=== PATIENT | female | born 1940 | race Caucasian/White ===

== ENCOUNTER 2018-04-25 07:58 | Day surgery (SDC) | payer MEDICARE, OTHER ==
[~2018-04-25 07:58] MED LIST: Sodium Chloride 0.9% 1,000 ML IV SCH
[2018-04-25] MEDS ORDERED: Propofol 1,000 MG/100 ML SDV ONE (10:25)
[2018-04-25] MEDS ORDERED: Lidocaine 2% Viscous Solution 15 ML Cup ONE (10:25)
--- NOTE | 2018-04-25 17:08 | OR ---
DATE OF OPERATION: 04/25/2018 ANESTHESIA: MAC. PREOPERATIVE DIAGNOSIS: Possible gastrointestinal bleed. POSTOPERATIVE DIAGNOSIS: Normal EGD. ESTIMATED BLOOD LOSS: None. COMPLICATIONS: None. INDICATIONS FOR THE PROCEDURE: The patient is a 77-year-old female who is here today for an upper scope. Apparently, she has a history of gastric ulcers approximately 4 to 5 years ago, had a significant GI bleeding and last had this scope at that time. Over the past 1 to 2 years, the patient has had some dark black output, potentially through stools but also potentially per vagina. She has had hysterectomy previously. The patient is here today for upper scope. DESCRIPTION OF PROCEDURE: Informed consent was obtained for the patient. The patient was taken to the operating room and placed on the table in the left lateral decubitus position. Monitored anesthesia care was administered. Esophagogastroscope was the advanced through the mouth and did reach the second portion of the duodenum. Duodenum was normal. No signs of ulcers or duodenitis. The stomach was normal. No signs of ulcers or gastritis. Retroflexion performed was also normal. The scope was withdrawn into the esophagus. No signs of esophagitis. No strictures. No varices. The gastroscope was then slowly withdrawn. The remainder of the esophagus was normal as well. The scope was then removed. FINDINGS: Normal EGD. RECOMMENDATIONS: If there is concern for further GI bleeding, would recommend a capsule endoscopy in addition to colonoscopy. If this appears to be more potential bleeding from the vagina or vaginal cuff, I would recommend further followup with TECHNICAL SUPPORT TECHNICIAN. HALEIGH /[id number]
== END 2018-04-25 12:30 | disposition home or self-care (01) ==
LOC: LB.SDS 07:58
PROVIDERS: ATTEND Surgery
DX: K92.2 Gastrointestinal hemorrhage, unspecified (principal)
CPT/HCPCS: 82962; A9270-GY; J2704; J7030

== ENCOUNTER 2019-09-27 11:33 | Emergency (ER) | payer MEDICARE, OTHER ==
[2019-09-27] MEDS ORDERED: Ketorolac 30 MG/ML SDV ONE (13:37)
--- NOTE | 2019-09-27 17:43 | ER ---
REASON FOR EMERGENCY ROOM VISIT: Lower abdominal pain. HISTORY: This 78-year-old woman comes to the ER with a 1-2 week history of right lower quadrant abdominal pain. It started perhaps a week or 2 ago and was in the right lower quadrant. It tended to wax and wane every evening, usually lasting no more than 15 or 20 minutes at a time. This persisted and then increased in intensity over the past couple of days. In addition to that, she began to have some pain and burning over the anterolateral aspect of her right thigh. This too worsened last night. The pain did tend to radiate around to the right flank area. It was not associated with any urinary symptoms, hematuria, diarrhea, nausea, vomiting, fever, or anorexia. PAST MEDICAL HISTORY: Significant for; 1. Coronary artery disease with history of AK and coronary artery stent in 2012. 2. Type 2 diabetes. 3. Kidney disease. 4. Obesity. 5. Retinopathy. 6. Cataracts. MEDICATIONS: These were reviewed, please see EMR. They include atorvastatin, nitroglycerin, furosemide, aspirin, and acetaminophen. ALLERGIES: NONE TO MEDICATIONS. REVIEW OF SYSTEMS: Pertinent positives and negatives as listed in the HPI. PHYSICAL EXAMINATION: GENERAL: Reveals a pleasant, obese elderly woman, in no acute distress. VITAL SIGNS: She is afebrile. Pulse is 68, blood pressure 156/70, respiratory rate 20, O2 sats 95% on room air. HEENT: Head is normocephalic. No scleral icterus is noted. Oropharynx is normal. NECK: Supple. No adenopathy is noted. CHEST: Clear to auscultation. CARDIAC: Regular rate without murmur. ABDOMEN: Obese. Bowel sounds are present. Nondistended, soft, nontender. No palpable masses. No hepatosplenomegaly. No rebound or guarding was noted. RECTAL: Examination was not performed. EXTREMITIES: She has bilateral ankle edema that is symmetrical. She has palpable foot pulses. SKIN: No rashes. NEUROLOGIC: Cranial nerves 2-12 intact. She moves all 4 extremities equally well and to command. LABORATORY DATA: Her CBC is normal. Her CMP shows normal electrolytes. Her creatinine is elevated at 1.42 with a low GFR of 36. Her glucose is 130. Her total bilirubin is borderline elevated at 1.2 with an AST of 56 and alkaline phosphatase of 155. Her urine was unremarkable with no pyuria or hematuria. A CT scan of her abdomen was done looking for ureterolithiasis or nephrolithiasis and this was negative except for the finding of some biliary ductal dilatation, which had been present on previous studies. No other intraabdominal pathology was noted. The finding of mild biliary ductal dilatation was noted on the previous study as well. IMPRESSION: Right lower quadrant pain, uncertain etiology I doubt intraabdominal cause. PLAN: I explained to her that the burning and numbness and pain in her right upper lateral thigh might be due to lateral femoral cutaneous nerve impingement and that I could not offer an explanation for abdominal discomfort. I felt that she did receive 1 dose of Toradol [address] scan IM and had considerable relief of her discomfort. At this point, I felt that the better part of valor is to simply send her back home and have her keep an eye on things and take it easy over the rest of the weekend. If her pain persist into next week or worsen, she should probably be evaluated again. Additionally, because of the above- mentioned lab abnormalities, I encouraged her to call to the clinic and arrange for another CMP to recheck the status of her creatinine, kidney function and liver enzymes. She understands and agrees with this plan. All questions were answered. RADHA /[id number]
--- NOTE | 2019-09-28 11:26 | CT ---
DATE OF SERVICE: 09/27/19 CLINICAL DATA: Abdominal Pain UNENHANCED ABDOMEN AND PELVIC CT: Multislice acquisition through the abdomen and pelvis without IV or oral contrast was performed. Comparison is made to a prior exam dated 11/13/14. There are minimal atelectatic changes in both lung bases. The heart size is normal. The liver is normal size. It does have slightly lobulated contours suggesting the possibility of cirrhosis. No focal hepatic lesions. The patient is status post cholecystectomy. There is intrahepatic biliary duct dilatation. The common bile duct is also significantly dilated measuring 15 mm in diameter. This may be related to the prior cholecystectomy. No evidence of a duct calculi. The spleen appears normal. The pancreas appears normal. The right and left adrenals appear normal. There is mild atrophy of both kidneys. There is renal cortical scarring bilaterally. No nephrocalcinosis or nephrolithiasis. No hydronephrosis or hydroureter. The appendix is not dilated. No evidence of appendicitis. There is mild diverticulosis of the descending and sigmoid colon. No evidence of diverticulitis. The patient is status post hysterectomy. There is a small amount of fluid within the bladder. It appears normal. No free air. No free fluid. No dilated loops of bowel. No adenopathy. No aortic aneurysm. There is a small fat containing umbilical hernia. There is degenerative disc disease throughout the lower thoracic and lumbar spine. No other significant findings. IMPRESSION: Multiple findings as discussed above. [id number] [facility]
== END 2019-09-27 14:24 | disposition home or self-care (01) ==
LOC: LB.ED 11:33
DX: R10.31 Right lower quadrant pain (principal); I25.10 Atherosclerotic heart disease of native coronary artery without angina pectoris; I25.2 Old myocardial infarction; E66.9 Obesity, unspecified; E11.319 Type 2 diabetes mellitus with unspecified diabetic retinopathy without macular edema; Z79.82 Long term (current) use of aspirin; Z79.899 Other long term (current) drug therapy; Z68.43 Body mass index [BMI] 50.0-59.9, adult; Z95.5 Presence of coronary angioplasty implant and graft
CPT/HCPCS: 36415; 74176; 80053; 81001; 85025; 96372; 99283; 99284-25; J1885

== ENCOUNTER 2019-10-02 10:09 | Emergency (ER) | payer MEDICARE, OTHER | END 2019-10-02 10:18 | disposition other institution (70) | LOC: LB.ED 10:09 | DX: Z53.21 Procedure and treatment not carried out due to patient leaving prior to being seen by health care provider (principal) | CPT/HCPCS: A0425; A0429 ==

== ENCOUNTER 2020-10-24 14:26 | Emergency (ER) | payer MEDICARE, OTHER ==
--- NOTE | 2020-10-24 15:32 | EDM.PDOC ---
ED HPI GENERAL MEDICAL PROBLEM - General Chief Complaint: General Stated Complaint: LUMP IN LEFT CALF Time Seen by Provider: 10/24/20 15:00 Source of Information: Reports: Patient History Limitations: Reports: No Limitations - History of Present Illness INITIAL COMMENTS - FREE TEXT/NARRATIVE: pt presents to the ER with a painful lateral left calf, she states "I noticed it this morning and it was a painful to touch and had a large lump on it, like a ball." pt is unsure of injury to the area and states her legs are normally swollen with edema. chart review shows CHF history on a diuretic. pt denies regular leg elevation. pt denies slow onset of pain, numbness, tingling, new difficulty with ambulation. Onset: Today - Related Data Allergies Allergy/AdvReac Type Severity Reaction Status Date / Time No Known Allergies Allergy Verified 04/25/18 08:13 Home Meds: Home Meds Nitroglycerin 0.4 mg PO ASDIRECTED PRN 11/22/12 [History] atorvaSTATin [Lipitor] 40 mg PO BEDTIME 11/22/12 [History] Acetaminophen [Mapap] 100 mg PO DAILY 04/25/18 [History] Aspirin [Adult Low Dose Aspirin EC] 81 mg PO DAILY 04/25/18 [History] Furosemide [Lasix] 40 mg PO DAILY 04/25/18 [History] Past Medical History HEENT History: Reports: Other (See Below) Other HEENT History: wears glasses Cardiovascular History: Reports: CAD, NH, PTCA Respiratory History: Reports: COPD, SOB Other Respiratory History: SOB with activity Gastrointestinal History: Reports: GI Bleed [employer]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: Musculoskeletal History: Reports: Other (See Below) Other Musculoskeletal History: right leg pain/weakness Endocrine/Metabolic History: Reports: Other (See Below) Other Endocrine/Metabolic History: Borderline diabetes - Past Surgical History HEENT Surgical History: Reports: Cataract Surgery Respiratory Surgical History: Reports: None GI Surgical History: Reports: Colonoscopy, EGD Female Surgical History: Reports: Hysterectomy Social & Family History - Family History Family Medical History: No Pertinent Family History - Tobacco Use Tobacco Use Status *Q: Former Tobacco User Used Tobacco, but Quit: Yes Month/Year Tobacco Last Used: 05/31/2012 - Caffeine Use Caffeine Use: Reports: Coffee Caffeine Use Comment: 2 cans soda a day` ED ROS GENERAL - Review of Systems Review Of Systems: Comprehensive ROS is negative, except as noted in HPI. ED EXAM, GENERAL - Physical Exam Exam: See Below Exam Limited By: No Limitations General Appearance: Alert, WD/WN, No Apparent Distress Respiratory/Chest: No Respiratory Distress, Lungs Clear, Normal Breath Sounds, No Accessory Muscle Use Cardiovascular: Normal Peripheral Pulses, Regular Rate, Rhythm, Other (3+ pitting edema bilateral legs distal to knees) Peripheral Pulses: 1+: Posterior Tibial (L), Posterior Tibial (R), 2+: Radial (L), Radial (R) Extremities: Normal Range of Motion, Pedal Edema, Other (negative homans sign. there is bruising to lateral left calf.) Neurological: Alert, Oriented, Normal Cognition, Normal Gait, No Motor/Sensory Deficits Psychiatric: Normal Affect, Normal Mood Skin Exam: Warm, Dry, Intact, Normal Color, No Rash Course - Vital Signs Last Recorded V/S: Last Vital Signs Temp 96.7 F L 10/24/20 14:54 Pulse 72 10/24/20 14:54 Resp 18 10/24/20 14:54 BP 129/71 10/24/20 14:54 Pulse Ox 93 L 10/24/20 14:54 - Radiology Interpretation Free Text/Narrative:: bedside ultrasound shows bilateral intracellular free fluid indicative of edema process. overlying bruise of lateral left calf shows no cobblestoning of subcutaneous tissue via US, no encapsulated hyperechoic or hypoechoic areas. veins throughout popliteal space through distal calf show compressibility and good color Doppler flow. Departure - Departure Time of Disposition: 15:32 Disposition: Home, Self-Care 01 Condition: Good Clinical Impression: Hematoma of left lower leg - Discharge Information *PRESCRIPTION DRUG MONITORING PROGRAM REVIEWED*: Not Applicable *COPY OF PRESCRIPTION DRUG MONITORING REPORT IN PATIENT LUISA: Not Applicable Sepsis Event Note (ED) - Evaluation Sepsis Screening Result: No Definite Risk - Focused Exam Vital Signs: Vital Signs Temp Pulse Resp BP Pulse Ox 10/24/20 14:54 96.7 F L 72 18 129/71 93 L - Problem List & Annotations (1) Hematoma of left lower leg SNOMED Code(s): 66294061762334069 Code(s): S80.12XA - CONTUSION OF LEFT LOWER LEG, INITIAL ENCOUNTER Status: Acute - Problem List Review Problem List Initiated/Reviewed/Updated: Yes - Assessment/Plan Assessment:: hematoma of lateral left lower leg plan: elevate legs often continue with current medication regimen recommendation of juno hose or other compression stockings to reduce leg swelling and prevent recurrence of swelling. differentials considered: DVT, cellulitis
== END 2020-10-24 15:35 | disposition home or self-care (01) ==
LOC: LB.ED 14:26
DX: M79.81 Nontraumatic hematoma of soft tissue (principal); I25.10 Atherosclerotic heart disease of native coronary artery without angina pectoris; I25.2 Old myocardial infarction; J44.9 Chronic obstructive pulmonary disease, unspecified; I50.9 Heart failure, unspecified; Z87.891 Personal history of nicotine dependence; Z79.82 Long term (current) use of aspirin; Z79.899 Other long term (current) drug therapy
CPT/HCPCS: 99283

== ENCOUNTER 2023-04-17 14:16 | Emergency (ER) | payer MEDICARE, OTHER ==
[2023-04-17] MEDS ORDERED: Sodium Chloride 0.9% 10 ML Syringe FLUSH PRN (15:00)
[2023-04-17 15:20] LABS: HEMATOCRIT 37.4 % (37.0-47.0); HEMOGLOBIN 12.4 g/dL (11.5-16.5); MEAN CORPUSCULAR HEMOGLOBIN 26.6 pg (27.0-32.0); MEAN CORPUSCULAR HGB CONC 33.2 g/dL (31.0-35.0); MEAN PLATELET VOLUME 10.4 fL (6.0-10.0); RED BLOOD CELL COUNT 4.67 M/uL (3.80-5.80); RED CELL DISTRIBUTION WIDTH 17.9 % (11.0-16.0); WHITE BLOOD CELL COUNT,WBC 6.6 K/uL (4.0-11.0)
[2023-04-17 15:30] LABS: HEMOGLOBIN A1C 5.8 % (< 5.7)
[2023-04-17 15:40] LABS: A/G RATIO 0.5 (0.8-2.0); ALBUMIN 2.3 g/dL (3.4-5.0); ANION GAP 21.9 mmol/L (5.0-15.0); BILIRUBIN TOTAL 2.5 mg/dL (0.0-1.0); BUN/CREATININE RATIO 11.8 (6-25); CALCIUM 8.1 mg/dL (8.5-10.1); CARBON DIOXIDE,CO2 19.3 mmol/L (21.0-32.0); EST CRCL DRUG DOSING (CG) 3.81 mL/min; MAGNESIUM 2.4 mg/dL (1.8-2.4); POTASSIUM,K 5.2 mmol/L (3.5-5.1); PROTEIN TOTAL,TP 6.9 g/dL (6.4-8.2); TROPONIN I HIGH SENSITIVITY 24.5 pg/ml (<=60.4)
[2023-04-17 15:46] LABS: CREATININE 8.32 mg/dL (0.55-1.02)
[2023-04-17] MEDS: Sodium Chloride 0.9% 1,000 ML IV SCH ×2 (16:05→17:50)
[2023-04-17] MEDS ORDERED: Calcium Gluconate 10% 1 GM/10 ML SDV IVPUSH ONE (16:16)
[2023-04-17 16:22] LABS: APPEARANCE,URINE CLOUDY (CLEAR); BILIRUBIN,URINE NEGATIVE (NEGATIVE); COLOR,URINE YELLOW; GLUCOSE,URINE NEGATIVE (NEGATIVE); KETONES,URINE NEGATIVE (NEGATIVE); LEUKOCYTE ESTERASE,URINE NEGATIVE (NEGATIVE); NITRITE,URINE NEGATIVE (NEGATIVE); OCCULT BLOOD,URINE MODERATE (NEGATIVE); PROTEIN,URINE 100 mg/dL (NEGATIVE); UROBILINOGEN,URINE 0.2 E.U./dL (0.2-1.0)
[2023-04-17] MEDS ORDERED: Calcium Gluconate 10% 1 GM/10 ML SDV ONE (16:26)
[2023-04-17] MEDS ORDERED: Sodium Bicarbonate 8.4% 50 MEQ/50 ML Syringe ONE (16:26)
[2023-04-17 16:30] LABS: SQUAMOUS EPITHELIAL CELLS,UR FEW /HPF; WBC,URINE 0-5 /HPF
[2023-04-17 16:31] LABS: AMORPHOUS SEDIMENT,URINE MODERATE /HPF; COARSE GRANULAR CASTS,URINE OCCASIONAL /HPF
[2023-04-17] MEDS ORDERED: Sodium Bicarbonate 8.4% 50 MEQ/50 ML Syringe IVPUSH ONE (17:00)
[2023-04-17 17:20] LABS: ANION GAP 21.2 mmol/L (5.0-15.0); BUN/CREATININE RATIO 12.5 (6-25); CALCIUM 8.5 mg/dL (8.5-10.1); CARBON DIOXIDE,CO2 21.1 mmol/L (21.0-32.0); EST CRCL DRUG DOSING (CG) 3.9 mL/min; POTASSIUM,K 5.3 mmol/L (3.5-5.1)
[2023-04-17 17:24] LABS: CREATININE 8.13 mg/dL (0.55-1.02)
== END 2023-04-17 18:13 ==
LOC: LB.ED 14:16
DX: N17.9 Acute kidney failure, unspecified (principal); E11.649 Type 2 diabetes mellitus with hypoglycemia without coma; T50.905A Adverse effect of unspecified drugs, medicaments and biological substances, initial encounter; J44.9 Chronic obstructive pulmonary disease, unspecified; I25.10 Atherosclerotic heart disease of native coronary artery without angina pectoris; I25.2 Old myocardial infarction; Z79.82 Long term (current) use of aspirin; Z87.891 Personal history of nicotine dependence
CPT/HCPCS: 36415; 80048; 80053; 81001; 82947; 83036; 83735; 84484; 85027; 93005; 96361; 96374; 96375; 99285-25; A0425; A0429; J0612; J7030

== ENCOUNTER 2023-07-30 12:36 | Emergency (ER) | payer MEDICARE, OTHER ==
[2023-07-30 13:20] LABS: HEMOGLOBIN 12.7 g/dL (11.5-16.5); MEAN CORPUSCULAR HEMOGLOBIN 28.4 pg (27.0-32.0); MEAN CORPUSCULAR HGB CONC 30.2 g/dL (31.0-35.0); MEAN PLATELET VOLUME 10.1 fL (6.0-10.0); RED BLOOD CELL COUNT 4.47 M/uL (3.80-5.80); RED CELL DISTRIBUTION WIDTH 15.4 % (11.0-16.0); WHITE BLOOD CELL COUNT,WBC 8.2 K/uL (4.0-11.0)
[2023-07-30 13:36] LABS: ANION GAP 14.2 mmol/L (5.0-15.0); BUN/CREATININE RATIO 17.4 (6-25); CALCIUM 8.3 mg/dL (8.5-10.1); CARBON DIOXIDE,CO2 30.2 mmol/L (21.0-32.0); CREATININE 2.99 mg/dL (0.55-1.02); EST CRCL DRUG DOSING (CG) 10.6 mL/min; POTASSIUM,K 4.4 mmol/L (3.5-5.1)
== END 2023-07-30 15:30 | disposition home or self-care (01) ==
LOC: LB.ED 12:36
DX: T82.838A Hemorrhage due to vascular prosthetic devices, implants and grafts, initial encounter (principal); N18.6 End stage renal disease; I25.10 Atherosclerotic heart disease of native coronary artery without angina pectoris; I25.2 Old myocardial infarction; E11.22 Type 2 diabetes mellitus with diabetic chronic kidney disease; J44.9 Chronic obstructive pulmonary disease, unspecified; Z95.5 Presence of coronary angioplasty implant and graft; Z86.19 Personal history of other infectious and parasitic diseases; Z79.82 Long term (current) use of aspirin; Z79.899 Other long term (current) drug therapy; Z79.84 Long term (current) use of oral hypoglycemic drugs; Z99.2 Dependence on renal dialysis
CPT/HCPCS: 36415; 74176; 80048; 85027; 99284

== ENCOUNTER 2023-08-23 09:41 | Day surgery (SDC) | payer MEDICARE, OTHER ==
[~2023-08-23 09:41] MED LIST changes: +Lactated Ringers 1,000 ML IV SCH; +Morphine 2 MG/ML SYRINGE IVPUSH PRN; -Sodium Chloride 0.9% 1,000 ML IV SCH
[2023-08-24] MEDS: ceFAZolin 2 GM in Sodium Chloride 0.9% 100 ML IV ONE ×2 (08:18)
== END 2023-08-23 13:45 | disposition home or self-care (01) ==
LOC: LB.SDS 09:41
PROVIDERS: ATTEND Surgery
DX: Z49.01 Encounter for fitting and adjustment of extracorporeal dialysis catheter (principal); E11.29 Type 2 diabetes mellitus with other diabetic kidney complication; J44.9 Chronic obstructive pulmonary disease, unspecified; I25.10 Atherosclerotic heart disease of native coronary artery without angina pectoris; G47.33 Obstructive sleep apnea (adult) (pediatric); Z87.891 Personal history of nicotine dependence; Z79.82 Long term (current) use of aspirin; Z79.84 Long term (current) use of oral hypoglycemic drugs; Z79.899 Other long term (current) drug therapy
CPT/HCPCS: 82947

== ENCOUNTER 2023-11-21 19:18 | Emergency (ER) | payer MEDICARE, OTHER ==
[2023-11-21] MEDS: Aspirin 81 MG Tab.Chew PO ONE (19:29)
[2023-11-21] MEDS: Nitroglycerin 0.4 MG Tab.SL SL ONE (19:33)
[2023-11-21] MEDS ORDERED: Naloxone 2 MG/2 ML Syringe IVPUSH PRN (19:42)
[2023-11-21] MEDS: fentaNYL 100 MCG/2 ML SDV IM ONE (19:52)
[2023-11-21] MEDS: fentaNYL 100 MCG/2 ML SDV ONE (20:29)
[2023-11-21 20:34] LABS: BASOPHILS ABSOLUTE AUTO 0.03 K/uL (0.02-0.10); BASOPHILS PERCENT AUTO 0.3 % (0.0-0.5); EOSINOPHILS ABSOLUTE AUTO 0.06 K/uL (0.04-0.40); EOSINOPHILS PERCENT AUTO 0.6 % (1.0-5.0); HEMATOCRIT 44.7 % (37.0-47.0); HEMOGLOBIN 14.2 g/dL (11.5-16.5); LYMPHOCYTES ABSOLUTE AUTO 1.09 K/uL (1.50-4.00); LYMPHOCYTES PERCENT AUTO 10.9 % (20.0-40.0); MEAN CORPUSCULAR HEMOGLOBIN 29.1 pg (27.0-32.0); MEAN CORPUSCULAR HGB CONC 31.8 g/dL (31.0-35.0); MEAN CORPUSCULAR VOLUME 92 fL (76-96); MEAN PLATELET VOLUME 11.4 fL (6.0-10.0); MONOCYTES ABSOLUTE AUTO 0.86 K/uL (0.20-0.80); MONOCYTES PERCENT AUTO 8.6 % (3.0-10.0); NEUTROPHILS PERCENT AUTO 79.6 % (45.0-70.0); PLATELET COUNT,PLT 175 K/uL (150-500); RED BLOOD CELL COUNT 4.88 M/uL (3.80-5.80); RED CELL DISTRIBUTION WIDTH 14.8 % (11.0-16.0)
[2023-11-21] MEDS: fentaNYL 100 MCG/2 ML SDV IVPUSH ONE (20:48)
[2023-11-21 20:58] LABS: A/G RATIO 0.7 (0.8-2.0); ALBUMIN 2.9 g/dL (3.4-5.0); BILIRUBIN TOTAL 1.3 mg/dL (0.0-1.0); BUN/CREATININE RATIO 21.2 (6-25); CALCIUM 9.1 mg/dL (8.5-10.1); CARBON DIOXIDE,CO2 29.2 mmol/L (21.0-32.0); CREATININE 2.69 mg/dL (0.55-1.02); EST CRCL DRUG DOSING (CG) 11.58 mL/min; POTASSIUM,K 4.2 mmol/L (3.5-5.1); PROTEIN TOTAL,TP 7.1 g/dL (6.4-8.2)
[2023-11-21 21:01] LABS: MAGNESIUM 2.2 mg/dL (1.8-2.4); TROPONIN I HIGH SENSITIVITY 12.6 pg/ml (<=60.4)
[2023-11-21 21:02] LABS: PTT,PARTIAL THROMBOPLSTIN TIME 22.9 SECONDS (24.4-33.2)
[2023-11-21 21:03] LABS: PROTHROMBIN TIME 10.5 sec (9.0-11.5)
[2023-11-21] MEDS ORDERED: Iopamidol 755 Mg/ML 100 ML Bottle IV SCH (21:30)
[2023-11-21] MEDS: GI Cocktail Oral Solution 30 ML PO ONE (23:02)
[2023-11-22] MEDS: Pantoprazole 40 MG Tab.CR PO SCH (00:08)
[2023-11-22 00:34] VITALS: BP 120/52; PULSE 80
[2023-11-23] MEDS: Sodium Chloride 0.9% 10 ML Syringe FLUSH ONE (08:07)
[2023-11-23] MEDS: Sodium Chloride 0.9% 50 ML SDV FLUSH ONE (08:07)
[2023-11-23] MEDS: Ondansetron 4 MG Tab.DIS PO ONE (08:08)
== END 2023-11-22 00:15 | disposition home or self-care (01) ==
LOC: LB.ED 19:18
DX: K29.00 Acute gastritis without bleeding (principal); I10 Essential (primary) hypertension; I25.10 Atherosclerotic heart disease of native coronary artery without angina pectoris; I25.2 Old myocardial infarction; E11.9 Type 2 diabetes mellitus without complications; Z95.1 Presence of aortocoronary bypass graft; Z90.710 Acquired absence of both cervix and uterus; Z79.899 Other long term (current) drug therapy; Z79.82 Long term (current) use of aspirin
CPT/HCPCS: 36415; 71045; 71275; 80053; 83735; 84484; 85025; 85379; 85610; 85730; 93005; 93010; 96372; 99284; 99285; A9270-GY; J3010

== ENCOUNTER 2024-02-21 12:26 | Emergency (ER) | payer MEDICARE, OTHER ==
[2024-02-21] MEDS: Sodium Chloride 0.9% 500 ML IV ONE (13:14)
[2024-02-21 13:16] LABS: BASOPHILS ABSOLUTE AUTO 0.01 K/uL (0.02-0.10); BASOPHILS PERCENT AUTO 0.1 % (0.0-0.5); EOSINOPHILS ABSOLUTE AUTO 0.01 K/uL (0.04-0.40); EOSINOPHILS PERCENT AUTO 0.1 % (1.0-5.0); HEMATOCRIT 39.3 % (37.0-47.0); HEMOGLOBIN 12.8 g/dL (11.5-16.5); LYMPHOCYTES ABSOLUTE AUTO 0.41 K/uL (1.50-4.00); MEAN CORPUSCULAR HEMOGLOBIN 28.4 pg (27.0-32.0); MEAN CORPUSCULAR HGB CONC 32.6 g/dL (31.0-35.0); MEAN CORPUSCULAR VOLUME 87 fL (76-96); MEAN PLATELET VOLUME 10.2 fL (6.0-10.0); MONOCYTES PERCENT AUTO 5.1 % (3.0-10.0); NEUTROPHILS ABSOLUTE AUTO 12.68 K/uL (2.00-7.50); NEUTROPHILS PERCENT AUTO 91.7 % (45.0-70.0); PLATELET COUNT,PLT 220 K/uL (150-500); RED BLOOD CELL COUNT 4.51 M/uL (3.80-5.80); RED CELL DISTRIBUTION WIDTH 14.5 % (11.0-16.0); WHITE BLOOD CELL COUNT,WBC 13.8 K/uL (4.0-11.0)
[2024-02-21 13:38] LABS: A/G RATIO 0.4 (0.8-2.0); ALANINE AMINOTRANSFERASE,ALT 29 U/L (12-78); ALBUMIN 1.6 g/dL (3.4-5.0); ALKALINE PHOSPHATASE 134 U/L (46-116); ANION GAP 12.8 mmol/L (5.0-15.0); ASPARTATE AMNIOTRANSFERASE,AST 29 U/L (15-37); BILIRUBIN TOTAL 0.6 mg/dL (0.0-1.0); BLOOD UREA NITROGEN,BUN 31 mg/dL (8-26); BUN/CREATININE RATIO 7.5 (6-25); CALCIUM 8.2 mg/dL (8.5-10.1); CARBON DIOXIDE,CO2 27.6 mmol/L (21.0-32.0); CHLORIDE,CL 97 mmol/L (98-107); ESTIMATED GFR 10 mL/min (>60); GLUCOSE RANDOM 166 mg/dL (74-100); PROTEIN TOTAL,TP 5.6 g/dL (6.4-8.2); SODIUM,NA 135 mmol/L (136-145)
[2024-02-21 13:42] LABS: CREATININE 4.15 mg/dL (0.55-1.02); POTASSIUM,K 2.4 mmol/L (3.5-5.1)
[2024-02-21] MEDS: Potassium Chloride Riders 10 MEQ in Premix Bag 1 BAG IV ONE (13:57)
[2024-02-21] MEDS: Potassium Chloride 10 MEQ Tab.ER PO ONE ×2 (14:11→15:41)
[2024-02-21] MEDS: Lidocaine 2% 5 ML SDV INJECT ONE (15:15)
[2024-02-21] MEDS: Hyaluronidase, Human Recomb. 150 Unit/ML Vial SUBCUT SCH (15:25)
[2024-02-21] MEDS: Sodium Phosphate,Monobasic/Sodium Phosphate,Dibasic Enema 133 ML Bottle RECTAL ONE (15:35)
[2024-02-21] MEDS ORDERED: Sodium Chloride 0.9% 10 ML Syringe FLUSH PRN (15:55)
[2024-02-21 16:33] LABS: APPEARANCE,URINE CLOUDY (CLEAR); BILIRUBIN,URINE SMALL (NEGATIVE); COLOR,URINE OTHER; GLUCOSE,URINE 500 mg/dL (NEGATIVE); KETONES,URINE TRACE mg/dL (NEGATIVE); LEUKOCYTE ESTERASE,URINE NEGATIVE (NEGATIVE); NITRITE,URINE NEGATIVE (NEGATIVE); OCCULT BLOOD,URINE NEGATIVE (NEGATIVE); PROTEIN,URINE 30 mg/dL (NEGATIVE); UROBILINOGEN,URINE 0.2 E.U./dL (0.2-1.0)
[2024-02-21 16:34] LABS: AMORPHOUS SEDIMENT,URINE MANY /HPF; RBC,URINE 0-5 /HPF; SQUAMOUS EPITHELIAL CELLS,UR MANY /HPF; WBC,URINE 0-5 /HPF
[2024-02-21] MEDS: Sodium Chloride 0.9% 1,000 ML IV SCH (16:38)
[2024-02-21] MEDS: Piperacillin/Tazobactam 3.375 GM in Sodium Chloride 0.9% 100 ML IV SCH (16:40)
[2024-02-21] MEDS: Lidocaine 2% 20 ML MDV INJECT ONE (17:15)
[2024-02-21 18:21] VITALS: BP 91/42; PULSE 77
== END 2024-02-21 17:30 ==
LOC: LB.ED 12:26
DX: E87.6 Hypokalemia (principal); I95.9 Hypotension, unspecified; I25.10 Atherosclerotic heart disease of native coronary artery without angina pectoris; I10 Essential (primary) hypertension; I25.2 Old myocardial infarction; E11.9 Type 2 diabetes mellitus without complications; Z79.899 Other long term (current) drug therapy; Z79.82 Long term (current) use of aspirin; Z90.710 Acquired absence of both cervix and uterus
CPT/HCPCS: 36415; 51702; 74176; 80053; 81001; 83605; 83690; 85025; 96361; 96365; 96366; 96367; 96372; 99285; 99285-25; A0425; A0429; A9270-GY; J2543; J3480; J3490; J7030; J7040

== ENCOUNTER 2024-03-13 14:10 | Inpatient (IN) | payer MEDICARE, OTHER ==
[2024-03-13 15:18] LABS: ANION GAP 11.2 mmol/L (5.0-15.0); BUN/CREATININE RATIO 8.3 (6-25); CALCIUM 8.4 mg/dL (8.5-10.1); CARBON DIOXIDE,CO2 32.9 mmol/L (21.0-32.0); EST CRCL DRUG DOSING (CG) 8.37 mL/min; POTASSIUM,K 4.1 mmol/L (3.5-5.1)
[2024-03-13 15:21] LABS: CREATININE 3.72 mg/dL (0.55-1.02)
[2024-03-13 15:46] LABS: BASOPHILS ABSOLUTE AUTO 0.05 K/uL (0.02-0.10); BASOPHILS PERCENT AUTO 0.6 % (0.0-0.5); EOSINOPHILS ABSOLUTE AUTO 0.12 K/uL (0.04-0.40); EOSINOPHILS PERCENT AUTO 1.5 % (1.0-5.0); HEMATOCRIT 40.9 % (37.0-47.0); HEMOGLOBIN 12.3 g/dL (11.5-16.5); LYMPHOCYTES ABSOLUTE AUTO 0.92 K/uL (1.50-4.00); LYMPHOCYTES PERCENT AUTO 11.9 % (20.0-40.0); MEAN CORPUSCULAR HEMOGLOBIN 28.1 pg (27.0-32.0); MEAN CORPUSCULAR HGB CONC 30.1 g/dL (31.0-35.0); MEAN CORPUSCULAR VOLUME 93 fL (76-96); MEAN PLATELET VOLUME 10.6 fL (6.0-10.0); MONOCYTES ABSOLUTE AUTO 0.69 K/uL (0.20-0.80); MONOCYTES PERCENT AUTO 8.9 % (3.0-10.0); NEUTROPHILS ABSOLUTE AUTO 5.97 K/uL (2.00-7.50); NEUTROPHILS PERCENT AUTO 77.1 % (45.0-70.0); PLATELET COUNT,PLT 195 K/uL (150-500); RED BLOOD CELL COUNT 4.38 M/uL (3.80-5.80); RED CELL DISTRIBUTION WIDTH 16.4 % (11.0-16.0); WHITE BLOOD CELL COUNT,WBC 7.8 K/uL (4.0-11.0)
[2024-03-13 16:02] LABS: C-REACTIVE PROTEIN 19.1 mg/L (<5.0)
[2024-03-13] MEDS: Torsemide 20 MG Tab PO ONE (17:37)
[2024-03-13] MEDS: Albuterol 6.7 GM Inhaler INH SCH (20:39)
[2024-03-13] MEDS: atorvaSTATin 40 MG Tab PO SCH (20:40)
[2024-03-14] MEDS: Midodrine 5 MG Tab PO SCH (00:15)
[2024-03-14] MEDS: Ibuprofen 600 MG Tab PO PRN (06:03)
[2024-03-14] MEDS ORDERED: Midodrine 5 MG Tab PO SCH (08:00)
[2024-03-14] MEDS: Torsemide 20 MG Tab PO SCH ×2 (08:11→14:11)
[2024-03-14] MEDS: Aspirin 81 MG Tab.EC PO SCH (08:12)
[2024-03-14] MEDS: Potassium Chloride 20 MEQ Tab.ER PO SCH (08:12)
[2024-03-14 08:46] LABS: CALCIUM 8.1 mg/dL (8.5-10.1); CARBON DIOXIDE,CO2 33.8 mmol/L (21.0-32.0); EST CRCL DRUG DOSING (CG) 9.71 mL/min; POTASSIUM,K 3.8 mmol/L (3.5-5.1)
[2024-03-14 08:50] LABS: CREATININE 3.21 mg/dL (0.55-1.02)
[2024-03-14] MEDS ORDERED: Albuterol 6.7 GM Inhaler INH PRN (09:27)
[2024-03-14] MEDS: glipiZIDE 2.5 MG Tab.ER PO SCH (09:28)
[2024-03-14] MEDS ORDERED: Torsemide 20 MG Tab PO SCH (14:00)
[2024-03-14] MEDS: Acetaminophen 500 MG Tab PO SCH (14:13)
== END 2024-03-14 16:15 | DRG 299 ==
LOC: LB.ED 14:10 → OBSVTOIN 17:40 → LB.MS 17:40
PROVIDERS: ADMIT Family Medicine; ATTEND Family Medicine
DX: I87.2 Venous insufficiency (chronic) (peripheral) (principal); L97.529 Non-pressure chronic ulcer of other part of left foot with unspecified severity; N18.6 End stage renal disease; I12.0 Hypertensive chronic kidney disease with stage 5 chronic kidney disease or end stage renal disease; L97.921 Non-pressure chronic ulcer of unspecified part of left lower leg limited to breakdown of skin; H54.7 Unspecified visual loss; I25.10 Atherosclerotic heart disease of native coronary artery without angina pectoris; J44.9 Chronic obstructive pulmonary disease, unspecified; M19.90 Unspecified osteoarthritis, unspecified site; G43.909 Migraine, unspecified, not intractable, without status migrainosus; Z95.1 Presence of aortocoronary bypass graft; Z79.82 Long term (current) use of aspirin; E11.22 Type 2 diabetes mellitus with diabetic chronic kidney disease; Z99.2 Dependence on renal dialysis; Z79.84 Long term (current) use of oral hypoglycemic drugs; Z79.51 Long term (current) use of inhaled steroids; Z79.899 Other long term (current) drug therapy; I25.2 Old myocardial infarction; Z95.5 Presence of coronary angioplasty implant and graft; Z98.49 Cataract extraction status, unspecified eye; Z90.710 Acquired absence of both cervix and uterus; Z87.891 Personal history of nicotine dependence
CPT/HCPCS: 36415; 80048; 83880; 85025; 86140; 99285; A9270; 82947; 97162-GP; 97165-GO; 99222; 99239; U0002

== ENCOUNTER 2024-04-21 17:58 | Inpatient (IN) | payer MEDICARE, OTHER ==
[2024-04-21] MEDS: Sodium Chloride 0.9% 10 ML Syringe FLUSH PRN (18:24)
[2024-04-21] MEDS: Sodium Chloride 0.9% 1,000 ML IV SCH (18:32)
[2024-04-21 19:08] LABS: ANION GAP 12.6 mmol/L (5.0-15.0); BUN/CREATININE RATIO 14.4 (6-25); CALCIUM 8.4 mg/dL (8.5-10.1); CARBON DIOXIDE,CO2 32.4 mmol/L (21.0-32.0)
[2024-04-21 19:09] LABS: HEMATOCRIT 32.8 % (37.0-47.0); HEMOGLOBIN 10.3 g/dL (11.5-16.5); MEAN CORPUSCULAR HGB CONC 31.4 g/dL (31.0-35.0); MEAN PLATELET VOLUME 12.9 fL (6.0-10.0); RED BLOOD CELL COUNT 3.55 M/uL (3.80-5.80); RED CELL DISTRIBUTION WIDTH 16.9 % (11.0-16.0)
[2024-04-21 19:14] LABS: CREATININE 3.74 mg/dL (0.55-1.02); EST CRCL DRUG DOSING (CG) 8.33 mL/min
[2024-04-21 20:28] LABS: APPEARANCE,URINE CLOUDY (CLEAR); COLOR,URINE YELLOW; GLUCOSE,URINE 500 mg/dL (NEGATIVE); PH,URINE 5.5 (5.0-8.0); PROTEIN,URINE >=300 mg/dL (NEGATIVE)
[2024-04-21 20:29] LABS: BILIRUBIN,URINE NEGATIVE (NEGATIVE); KETONES,URINE NEGATIVE (NEGATIVE); LEUKOCYTE ESTERASE,URINE SMALL (NEGATIVE); NITRITE,URINE NEGATIVE (NEGATIVE); OCCULT BLOOD,URINE LARGE (NEGATIVE); UROBILINOGEN,URINE 0.2 E.U./dL (0.2-1.0); WBC,URINE >100 /HPF
[2024-04-21 20:30] LABS: BACTERIA,URINE MODERATE /HPF
[2024-04-21] MEDS: Piperacillin/Tazobactam 4.5 GM in Sodium Chloride 0.9% 100 ML IV ONE ×2 (21:40→21:50)
[2024-04-21 23:09] LABS: INFLUENZA A NAA NEGATIVE (NEGATIVE); INFLUENZA B NAA NEGATIVE (NEGATIVE); RESPIRATORY SYNCYTIAL VIR NAA NEGATIVE (NEGATIVE)
[2024-04-21 23:10] LABS: CORONAVIRUS COVID-19 NAA NEGATIVE (NEGATIVE)
[2024-04-22] MEDS: Midodrine 5 MG Tab PO SCH (05:56)
[2024-04-22] MEDS ORDERED: Non-Formulary Medication 1 Each (Potassium Chloride [Potassium Chloride] 20 MEQ Tablet.Er) PO SCH (08:00)
[2024-04-22] MEDS ORDERED: Non-Formulary Medication 1 Each (Midodrine [Midodrine] 10 MG Tablet) PO SCH (08:00)
[2024-04-22] MEDS ORDERED: Non-Formulary Medication 1 Each (Torsemide [Torsemide] 100 MG Tablet) PO SCH (08:00)
[2024-04-22] MEDS: Torsemide 20 MG Tab PO SCH (08:29)
[2024-04-22] MEDS: glipiZIDE 2.5 MG Tab.ER PO SCH (08:29)
[2024-04-22] MEDS: Aspirin 81 MG Tab.EC PO SCH (08:29)
[2024-04-22 08:30] LABS: HEMATOCRIT 31.3 % (37.0-47.0); HEMOGLOBIN 9.7 g/dL (11.5-16.5); MEAN CORPUSCULAR HEMOGLOBIN 28.7 pg (27.0-32.0); MEAN PLATELET VOLUME 12.3 fL (6.0-10.0); RED BLOOD CELL COUNT 3.38 M/uL (3.80-5.80); RED CELL DISTRIBUTION WIDTH 17.1 % (11.0-16.0)
[2024-04-22] MEDS: Albuterol 6.7 GM Inhaler INH SCH (08:30)
[2024-04-22] MEDS: Potassium Chloride 20 MEQ Tab.ER PO SCH (08:30)
[2024-04-22] MEDS: Heparin Sodium 5,000 Units/ML Vial SUBCUT SCH (08:30)
[2024-04-22 08:43] LABS: WHITE BLOOD CELL COUNT,WBC 33.1 K/uL (4.0-11.0)
[2024-04-22 09:01] LABS: ANION GAP 13.6 mmol/L (5.0-15.0); BUN/CREATININE RATIO 15.3 (6-25); CALCIUM 8.4 mg/dL (8.5-10.1); CARBON DIOXIDE,CO2 29.5 mmol/L (21.0-32.0); EST CRCL DRUG DOSING (CG) 9.19 mL/min; POTASSIUM,K 4.1 mmol/L (3.5-5.1)
[2024-04-22] MEDS ORDERED: Glucagon,Human Recombinant 1 MG Vial IM PRN (09:02)
[2024-04-22] MEDS ORDERED: 50% Dextrose in Water 50 ML Syringe IVPUSH PRN (09:02)
[2024-04-22 09:16] LABS: CREATININE 3.39 mg/dL (0.55-1.02)
[2024-04-22 09:47] LABS: LACTIC ACID 2.5 mmol/L (0.4-2.0)
[2024-04-22] MEDS: Piperacillin/Tazobactam 4.5 GM in Sodium Chloride 0.9% 100 ML IV SCH ×2 (10:50→12:37)
[2024-04-22] MEDS: Sodium Chloride 0.9% 1,000 ML IV SCH (11:25)
[2024-04-22] MEDS: Insulin Lispro 100 Unit/ML 3 ML KwikPen SUBCUT SCH (12:14)
[2024-04-22] MEDS ORDERED: atorvaSTATin 40 MG Tab PO SCH (20:00)
== END 2024-04-22 16:50 | DRG 871 ==
LOC: LB.ED 17:58 → LB.MS 21:31 → UNDOADMIN 23:11 → LB.MS 23:11
PROVIDERS: ADMIT Surgery; ATTEND Surgery
DX: A41.9 Sepsis, unspecified organism (principal); R65.20 Severe sepsis without septic shock; N39.0 Urinary tract infection, site not specified; I95.9 Hypotension, unspecified; N18.6 End stage renal disease; I12.0 Hypertensive chronic kidney disease with stage 5 chronic kidney disease or end stage renal disease; H54.7 Unspecified visual loss; I25.10 Atherosclerotic heart disease of native coronary artery without angina pectoris; J44.9 Chronic obstructive pulmonary disease, unspecified; M19.90 Unspecified osteoarthritis, unspecified site; G43.909 Migraine, unspecified, not intractable, without status migrainosus; E11.22 Type 2 diabetes mellitus with diabetic chronic kidney disease; W19.XXXA Unspecified fall, initial encounter; W18.30XA Fall on same level, unspecified, initial encounter; I25.2 Old myocardial infarction; Z95.5 Presence of coronary angioplasty implant and graft; Z99.2 Dependence on renal dialysis; Z79.82 Long term (current) use of aspirin; Z79.51 Long term (current) use of inhaled steroids; Z79.899 Other long term (current) drug therapy; Z79.02 Long term (current) use of antithrombotics/antiplatelets; Z98.890 Other specified postprocedural states; Z98.49 Cataract extraction status, unspecified eye; Z90.710 Acquired absence of both cervix and uterus; Z99.81 Dependence on supplemental oxygen
CPT/HCPCS: 0241U; 36415; 72131; 73700; 80048; 81001; 82550; 82947; 83605; 84145; 85027; 87040; 87086; 96360; 96361; 99285; 99222; 99239; A9270-GY; J1644; J1815; J2543; J7030